=== PATIENT | male | born 1990 | race Two or more races ===

== ENCOUNTER 2021-08-11 18:23 | Inpatient (IN) | payer OTHER ==
[~2021-08-11] VITALS: Ht 165.1 cm; Wt 83.5 kg
== END 2021-08-19 16:25 | disposition home or self-care (01) | DRG 603 ==
LOC: ER 18:23 → MEDI 08-12 00:54
PROVIDERS: ADMIT Internal Medicine; ATTEND Internal Medicine
PROC: 0H98XZX Drainage of Buttock Skin, External Approach, Diagnostic (ICD-10-PCS; principal; 2021-08-12)
DX: L03.317 Cellulitis of buttock (principal); L02.31 Cutaneous abscess of buttock; Z20.822 Contact with and (suspected) exposure to COVID-19; B96.20 Unspecified Escherichia coli [E. coli] as the cause of diseases classified elsewhere